=== PATIENT | female | born 1990 | race Caucasian/White ===

== ENCOUNTER 2023-09-09 15:30 | Inpatient (IN) | payer BC, OTHER ==
[2023-09-09] MEDS ORDERED: Lorazepam 2 MG/ML VIAL ONE ×3 (15:48→20:22)
[2023-09-09 16:41] LABS: #Basophils Less than 0.03 10x3/uL (0.0-0.2); #Eosinphils Less than 0.03 10x3/uL (0.0-0.7); %Basophils 0.1 % (0.0-1.0); %Lymphocytes 4.4 % (21.0-51.0); %Monocytes 2.8 % (0.0-10.0); %Neutrophils 91.8 % (42.0-75.0); Hematocrit 36.9 % (36.0-47.0); Hemoglobin 12.3 g/dL (12.0-16.0); Mean Corpuscular HGB CONC 33.3 g/dL (32.0-36.0); Mean Corpuscular Hemoglobin 30.6 pg (27.0-31.0); Mean Corpuscular Volume 91.8 fL (78.0-98.0); Platelet Count 187 10x3/uL (130-400); RBC Distribution Width 12.2 % (11.5-14.5); Red Blood Cell (RBC) Count 4.02 mill/uL (4.20-5.40)
[2023-09-09 16:52] LABS: Pregnancy Test - Urine (BHCG) POSITIVE (Negative); Pregu Control Background? CLEAR/WHITE (CLR/WHITE); Pregu Control Bar Appear? YES (CONTROL BAR)
[2023-09-09 16:53] LABS: Specific Gravity 1.018 (1.002-1.036)
[2023-09-09 16:55] LABS: Bilirubin Negative (Negative); Blood, Urine Negative (Negative); CAUTI Indications for Culture Alt mental st,lethar; Clarity Clear (Clear); Glucose, Urine (Dipstick) 500 mg/dL (Negative); Ketone, Urine Greater than 150 mg/dL (Negative); Leukocyte Negative Leu/uL (Negative); Mucous/LPF Rare LPF (<2+); Nitrite Negative (Negative); Protein, Urine (Dipstick) 20 mg/dL (Neg-Trace); RBC/HPF 0-3 HPF (0-3); Specific Gravity, Urine 1.018 (1.002-1.036); Urobilinogen Normal mg/dL (Less than 2); WBC/HPF 0-3 HPF (0-3)
[2023-09-09 16:57] LABS: Amphetamine Not Detected (NotDetected); Bacteria/HPF 1+ HPF (None Seen); Barbiturates Screen Not Detected (NotDetected); Benzodiazepine Screen Not Detected (NotDetected); Cocaine Metabolite Screen Not Detected (NotDetected); Methadone Not Detected (NotDetected); Methamphetamine Not Detected (NotDetected); Opiate Screen Not Detected (NotDetected); Oxycodone Screen Not Detected (NotDetected); Phencyclidine (PCP) Not Detected (NotDetected); THC/Cannabinoid Screen Not Detected (NotDetected); Tricyclic Screen Detected (NotDetected)
[2023-09-09 16:59] LABS: Urine Culture Reflex No No
[2023-09-09 17:00] LABS: Acetaminophen Less than 10 mcg/mL (10.0-30.0); Alcohol Less than 10.0 mg/dL (Less than 10); Salicylate Less than 8.0 mg/dL (15.0-30.0)
[2023-09-09 17:01] LABS: ALT (SGPT) 10 U/L (8-55); AST (SGOT) 12 U/L (5-34); Albumin 3.6 g/dL (3.5-5.0); Alkaline Phosphatase 44 U/L (40-110); Anion Gap 15 mmol/L (10-20); BUN (Urea Nitrogen) 7 mg/dL (7.0-18.7); Bilirubin, Total 0.7 mg/dL (0.2-1.2); CK (CPK) 46 U/L (29-168); Calc. Creatinine Clearance 0 mL/min (70-130); Calcium 8.2 mg/dL (7.8-10.44); Carbon Dioxide 15 mmol/L (22-29); Chloride 106 mmol/L (98-107); Estimated GFR 113; Globulin 2.7 g/dL (2.4-3.5); Glucose 179 mg/dL (70-105); Potassium 3.1 mmol/L (3.5-5.1); Protein, Total 6.3 g/dL (6.0-8.3); Sodium 133 mmol/L (136-145)
[2023-09-09] MEDS ORDERED: Ondansetron PF 4 MG/2 ML Vial ONE (17:25)
[2023-09-09] MEDS ORDERED: Magnesium 2 GM/50 ML BAG (IN WATER) ONE (19:54)
[2023-09-09 20:02] LABS: Magnesium 1.6 mg/dL (1.6-2.6)
[2023-09-09] MEDS ORDERED: NS 0.9% w/ 20 MEQ KCL 1,000 ML ONE (21:02)
[2023-09-09] MEDS ORDERED: Ziprasidone 20 MG VIAL ONE (22:55)
[2023-09-09] MEDS ORDERED: Sterile Water 10 ML ONE (22:56)
[2023-09-09 23:51] LABS: ALT (SGPT) 10 U/L (8-55); AST (SGOT) 16 U/L (5-34); Albumin 3.6 g/dL (3.5-5.0); Alkaline Phosphatase 42 U/L (40-110); Anion Gap 10 mmol/L (10-20); BUN (Urea Nitrogen) 5 mg/dL (7.0-18.7); Bilirubin, Total 0.6 mg/dL (0.2-1.2); Calc. Creatinine Clearance 0 mL/min (70-130); Calcium 7.6 mg/dL (7.8-10.44); Carbon Dioxide 17 mmol/L (22-29); Chloride 108 mmol/L (98-107); Estimated GFR 120; Globulin 2.6 g/dL (2.4-3.5); Glucose 125 mg/dL (70-105); Potassium 3.5 mmol/L (3.5-5.1); Protein, Total 6.2 g/dL (6.0-8.3); Sodium 131 mmol/L (136-145)
[2023-09-10] MEDS ORDERED: Acetaminophen 325 MG TAB PO PRN (01:17)
[2023-09-10] MEDS ORDERED: Ondansetron PF 4 MG/2 ML Vial IVP PRN (01:17)
[2023-09-10] MEDS ORDERED: Ondansetron ODT 4 MG TAB PO PRN (01:17)
[2023-09-10 02:36] VITALS: BMI 23.4
[2023-09-10] MEDS: Dextrose 5%-Lactated Ringers 1,000 ML IV SCH (03:01)
[2023-09-10 05:58] LABS: #Basophils Less than 0.03 10x3/uL (0.0-0.2); #Eosinphils Less than 0.03 10x3/uL (0.0-0.7); %Basophils 0.2 % (0.0-1.0); %Eosinophils 0.1 % (0.0-10.0); %Monocytes 5.1 % (0.0-10.0); Hematocrit 35.2 % (36.0-47.0); Hemoglobin 11.7 g/dL (12.0-16.0); Mean Corpuscular HGB CONC 33.2 g/dL (32.0-36.0); Mean Corpuscular Hemoglobin 29.8 pg (27.0-31.0); Mean Corpuscular Volume 89.8 fL (78.0-98.0); Mean Platelet Volume 11.5 fL (7.4-10.4); Platelet Count 185 10x3/uL (130-400); RBC Distribution Width 12.4 % (11.5-14.5); Red Blood Cell (RBC) Count 3.92 mill/uL (4.20-5.40)
[2023-09-10 06:52] LABS: Anion Gap 9 mmol/L (10-20); BUN (Urea Nitrogen) 4 mg/dL (7.0-18.7); Calc. Creatinine Clearance 119 mL/min (70-130); Calcium 8.3 mg/dL (7.8-10.44); Carbon Dioxide 19 mmol/L (22-29); Chloride 106 mmol/L (98-107); Estimated GFR 118; Glucose 132 mg/dL (70-105); Potassium 3.4 mmol/L (3.5-5.1); Sodium 131 mmol/L (136-145)
[2023-09-10] MEDS: Famotidine 20 MG TAB PO SCH (07:50)
[2023-09-10] MEDS: Famotidine/PF 20 mg/2ml Vial SLOW IVP SCH (09:00)
[2023-09-10] MEDS: Potassium Chloride 20 MEQ in Premix 1 BAG IVPB SCH (15:26)
[2023-09-10] MEDS: Lorazepam 2 MG/ML VIAL IM SCH ×2 (15:26→23:30)
[2023-09-10] MEDS: Lorazepam 2 MG/ML VIAL ONE (15:26)
[2023-09-10] MEDS: Magnesium Sulfate In Water 4 GM in Premix 1 BAG IVPB SCH (15:26)
[2023-09-10] MEDS: Dexmedetomidine In 0.9 % NaCl 100 ML IV SCH (19:18)
[2023-09-10] MEDS: Lactated Ringer's 1,000 ML IV SCH ×2 (21:45→22:37)
[2023-09-10 22:13] LABS: ALT (SGPT) 15 U/L (8-55); AST (SGOT) 31 U/L (5-34); Albumin 2.9 g/dL (3.5-5.0); Alkaline Phosphatase 37 U/L (40-110); Anion Gap 11 mmol/L (10-20); BUN (Urea Nitrogen) 5 mg/dL (7.0-18.7); Bilirubin, Total 0.5 mg/dL (0.2-1.2); Calc. Creatinine Clearance 105 mL/min (70-130); Calcium 7.8 mg/dL (7.8-10.44); Carbon Dioxide 17 mmol/L (22-29); Chloride 108 mmol/L (98-107); Estimated GFR 104; Globulin 2.2 g/dL (2.4-3.5); Glucose 269 mg/dL (70-105); Potassium 4.6 mmol/L (3.5-5.1); Protein, Total 5.1 g/dL (6.0-8.3); Sodium 131 mmol/L (136-145)
[2023-09-11] MEDS: Lorazepam 2 MG/ML VIAL ONE ×3 (00:07→12:59)
[2023-09-11] MEDS: Glycopyrrolate 0.2 MG/ML 5 ML SYRINGE SLOW IVP SCH (06:13)
[2023-09-11] MEDS ORDERED: Lorazepam 2 MG/ML VIAL SLOW IVP SCH (08:00)
[2023-09-11] MEDS: Lorazepam 2 MG/ML VIAL IM SCH (08:23)
[2023-09-11] MEDS: Lorazepam 2 MG/ML VIAL SLOW IVP PRN (09:37)
[2023-09-11] MEDS: Sodium Bicarb 50 MEQ/50 ML Abboject 8.4% SYRINGE ONE (09:39)
[2023-09-11] MEDS: fentaNYL 50 mcg/mL 1 mL Vial SLOW IVP SCH (09:59)
[2023-09-11] MEDS: Etomidate 40 MG (20 mL) VIAL IVP SCH (10:00)
[2023-09-11] MEDS: PROPOFOL 200 MG/20 ML VIAL IV SCH (10:03)
[2023-09-11] MEDS: Propofol 1,000 MG/100 ML VIAL IV PRN (10:03)
[2023-09-11] MEDS: Sodium Bicarbonate 75 MEQ in Sodium Chloride 0.45% 1,000 ML IV SCH (10:15)
[2023-09-11] MEDS ORDERED: Ventilator Sedation Protocol 1 EACH FS SCH (10:30)
[2023-09-11] MEDS ORDERED: Fentanyl BOLUS 250 ML IVPB PRN (10:45)
[2023-09-11] MEDS ORDERED: Propofol BOLUS 1,000 MG/100 ML VIAL IV PRN (10:45)
[2023-09-11] MEDS ORDERED: Morphine 2 MG/ML VIAL SLOW IVP PRN (10:45)
[2023-09-11] MEDS ORDERED: DISCONTINUE PREVIOUS NARCOTIC PAIN MEDICATIONS AND BENZODIAZEPINES FS SCH (10:45)
[2023-09-11 12:47] LABS: Actual Bicarbonate (HCO3v) 18.3 mEq/L (22-28); Base Excess -5.2 mEq/L (-2.0 to +3.0); Calcium, Ionized (venous) 1.13 mmol/L (1.16-1.32); Chloride (VBG) 108 mmol/L (98-106); Hematocrit-VBG 36 % (36.0-47.0); Hemoglobin (Hb) 12.3 g/dL (11.7-15.5); Potassium (VBG) 3.87 mmol/L (3.70-5.30); Sodium 140 mmol/L (133-146)
[2023-09-11] MEDS: Magnesium 2 GM/50 ML(in water) 2 GM in Premix 1 BAG IVPB SCH ×2 (12:51→12:58)
[2023-09-11] MEDS: cefTRIAXone\\ROCEPHIN 2 GM in Sodium Chloride 0.9% 100 ML IVPB SCH ×2 (12:52→13:04)
[2023-09-11] MEDS: fentaNYL 50 mcg/mL 1 mL Vial ONE (12:59)
[2023-09-11] MEDS: Propofol 1,000 MG/100 ML VIAL IV ONE (12:59)
[2023-09-11] MEDS: Fentanyl CADD 100 ML IV SCH (13:16)
[2023-09-11 13:59] LABS: #Basophils Less than 0.03 10x3/uL (0.0-0.2); %Basophils 0.2 % (0.0-1.0); %Eosinophils 0.9 % (0.0-10.0); %Lymphocytes 17.3 % (21.0-51.0); %Monocytes 11.2 % (0.0-10.0); %Neutrophils 69.9 % (42.0-75.0); Hematocrit 34.3 % (36.0-47.0); Hemoglobin 11.2 g/dL (12.0-16.0); Mean Corpuscular HGB CONC 32.7 g/dL (32.0-36.0); Mean Platelet Volume 12.4 fL (7.4-10.4); Platelet Count 121 10x3/uL (130-400); RBC Distribution Width 13.1 % (11.5-14.5); Red Blood Cell (RBC) Count 3.61 mill/uL (4.20-5.40)
[2023-09-11 14:13] LABS: Lactic Acid 2.3 mmol/L (0.5-2.2)
[2023-09-11 14:16] LABS: ALT (SGPT) 23 U/L (8-55); AST (SGOT) 50 U/L (5-34); Alkaline Phosphatase 39 U/L (40-110); Anion Gap 11 mmol/L (10-20); BUN (Urea Nitrogen) 5 mg/dL (7.0-18.7); Bilirubin, Total 0.8 mg/dL (0.2-1.2); Calc. Creatinine Clearance 115 mL/min (70-130); Calcium 8.3 mg/dL (7.8-10.44); Carbon Dioxide 18 mmol/L (22-29); Chloride 113 mmol/L (98-107); Estimated GFR 115; Globulin 2.4 g/dL (2.4-3.5); Glucose 94 mg/dL (70-105); Potassium 3.8 mmol/L (3.5-5.1); Protein, Total 5.4 g/dL (6.0-8.3); Sodium 138 mmol/L (136-145)
[2023-09-11] MEDS: Famotidine 20 MG TAB PER TUBE SCH (21:33)
[2023-09-11 22:23] LABS: Magnesium 2.4 mg/dL (1.6-2.6)
[2023-09-11] MEDS: Potassium Chloride 20 MEQ in Premix 1 BAG IVPB SCH (23:22)
[2023-09-12 03:46] LABS: Actual Bicarbonate (HCO3v) 23.6 mEq/L (22-28); Base Excess 0.7 mEq/L (-2.0 to +3.0); Calcium, Ionized (venous) 1.08 mmol/L (1.16-1.32); Chloride (VBG) 105 mmol/L (98-106); Hematocrit-VBG 33 % (36.0-47.0); Hemoglobin (Hb) 11.1 g/dL (11.7-15.5); Potassium (VBG) 3.68 mmol/L (3.70-5.30); Sodium 136 mmol/L (133-146); pH (venous) 7.487 (7.32-7.43)
[2023-09-12 04:01] LABS: #Basophils Less than 0.03 10x3/uL (0.0-0.2); %Basophils 0.1 % (0.0-1.0); %Eosinophils 1.6 % (0.0-10.0); %Lymphocytes 19.3 % (21.0-51.0); %Monocytes 6.3 % (0.0-10.0); %Neutrophils 72.5 % (42.0-75.0); Hematocrit 29.1 % (36.0-47.0); Mean Corpuscular HGB CONC 34.4 g/dL (32.0-36.0); Mean Corpuscular Hemoglobin 30.5 pg (27.0-31.0); Mean Corpuscular Volume 88.7 fL (78.0-98.0); Mean Platelet Volume 12.3 fL (7.4-10.4); Platelet Count 153 10x3/uL (130-400); RBC Distribution Width 13.1 % (11.5-14.5); Red Blood Cell (RBC) Count 3.28 mill/uL (4.20-5.40)
[2023-09-12 04:56] LABS: Phosphorus 1.8 mg/dL (2.3-4.7)
[2023-09-12 04:59] LABS: ALT (SGPT) 20 U/L (8-55); AST (SGOT) 34 U/L (5-34); Albumin 2.7 g/dL (3.5-5.0); Alkaline Phosphatase 41 U/L (40-110); Anion Gap 13 mmol/L (10-20); BUN (Urea Nitrogen) 5 mg/dL (7.0-18.7); Bilirubin, Total 0.4 mg/dL (0.2-1.2); Calc. Creatinine Clearance 123 mL/min (70-130); Calcium 7.9 mg/dL (7.8-10.44); Carbon Dioxide 21 mmol/L (22-29); Chloride 106 mmol/L (98-107); Estimated GFR 119; Globulin 2.3 g/dL (2.4-3.5); Glucose 71 mg/dL (70-105); Potassium 3.6 mmol/L (3.5-5.1); Sodium 136 mmol/L (136-145)
[2023-09-12] MEDS: Famotidine 20 MG TAB PER TUBE SCH (08:30)
[2023-09-12] MEDS ORDERED: Electrolyte Replacement Protocol FS PRN (08:45)
[2023-09-12] MEDS: Magnesium 2 GM/50 ML(in water) 2 GM in Premix 1 BAG IVPB SCH (08:55)
[2023-09-12] MEDS: Potassium Phosphate 15 MMOL in Sodium Chloride 0.9% 100 ML IVPB SCH (09:11)
[2023-09-12] MEDS: Potassium Bicarbonate/Cit Ac 20 MEQ TAB PER TUBE SCH (14:02)
[2023-09-12 15:12] LABS: Actual Bicarbonate (HCO3v) 21.3 mEq/L (22-28); Calcium, Ionized (venous) 1.07 mmol/L (1.16-1.32); Chloride (VBG) 101 mmol/L (98-106); Hematocrit-VBG 36 % (36.0-47.0); Hemoglobin (Hb) 12.1 g/dL (11.7-15.5); Potassium (VBG) 3.87 mmol/L (3.70-5.30); Sodium 133 mmol/L (133-146); pH (venous) 7.494 (7.32-7.43)
[2023-09-12] MEDS: Potassium Bicarbonate/Cit Ac 20 MEQ TAB PO SCH (19:07)
[2023-09-13 03:35] LABS: #Basophils 0.03 10x3/uL (0.0-0.2); %Basophils 0.4 % (0.0-1.0); %Lymphocytes 14.4 % (21.0-51.0); %Monocytes 5.1 % (0.0-10.0); %Neutrophils 77.9 % (42.0-75.0); Hematocrit 31.6 % (36.0-47.0); Hemoglobin 10.6 g/dL (12.0-16.0); Mean Corpuscular HGB CONC 33.5 g/dL (32.0-36.0); Mean Corpuscular Hemoglobin 30.8 pg (27.0-31.0); Mean Corpuscular Volume 91.9 fL (78.0-98.0); Mean Platelet Volume 11.8 fL (7.4-10.4); Platelet Count 155 10x3/uL (130-400); Red Blood Cell (RBC) Count 3.44 mill/uL (4.20-5.40)
[2023-09-13 03:38] LABS: Actual Bicarbonate (HCO3v) 24.6 mEq/L (22-28); Hematocrit-VBG 34 % (36.0-47.0); Hemoglobin (Hb) 11.4 g/dL (11.7-15.5); pH (venous) 7.405 (7.32-7.43)
[2023-09-13 03:39] LABS: Calcium, Ionized (venous) 1.14 mmol/L (1.16-1.32); Chloride (VBG) 101 mmol/L (98-106); Sodium 134 mmol/L (133-146)
[2023-09-13 04:07] LABS: ALT (SGPT) 25 U/L (8-55); AST (SGOT) 48 U/L (5-34); Albumin 2.6 g/dL (3.5-5.0); Alkaline Phosphatase 51 U/L (40-110); Anion Gap 12 mmol/L (10-20); BUN (Urea Nitrogen) 4 mg/dL (7.0-18.7); Bilirubin, Total 0.5 mg/dL (0.2-1.2); Calc. Creatinine Clearance 122 mL/min (70-130); Calcium 8.5 mg/dL (7.8-10.44); Carbon Dioxide 21 mmol/L (22-29); Chloride 107 mmol/L (98-107); Estimated GFR 117; Globulin 2.9 g/dL (2.4-3.5); Glucose 75 mg/dL (70-105); Potassium 4.2 mmol/L (3.5-5.1); Protein, Total 5.5 g/dL (6.0-8.3); Sodium 136 mmol/L (136-145)
[2023-09-13 04:09] LABS: Phosphorus 3.6 mg/dL (2.3-4.7)
[2023-09-13] MEDS: Magnesium 2 GM/50 ML(in water) 2 GM in Premix 1 BAG IVPB SCH (08:47)
[2023-09-13] MEDS: Haloperidol Lactate 5 MG/ML VIAL SLOW IVP SCH (09:55)
[2023-09-13] MEDS: Haloperidol Lactate 5 MG/ML VIAL ONE (10:17)
[2023-09-13] MEDS: Enoxaparin 40 MG (0.4 mL) SYRINGE SC SCH (13:13)
[2023-09-13] MEDS: Lorazepam 2 MG/ML VIAL SLOW IVP SCH (18:34)
[2023-09-14] MEDS: cefTRIAXone\\ROCEPHIN 2 GM in Sodium Chloride 0.9% 100 ML IVPB SCH (00:44)
[2023-09-14] MEDS: cefTRIAXone (ROCEPHIN) 2 GM VIAL ONE (00:44)
[2023-09-14] MEDS: Sodium Chloride 0.9% 100 ML ONE (00:57)
[2023-09-14] MEDS: Dexmedetomidine In 0.9 % NaCl 100 ML IV SCH (06:46)
[2023-09-14] MEDS: Enoxaparin 40 MG (0.4 mL) SYRINGE SC SCH (09:49)
[2023-09-14 11:15] LABS: Actual Bicarbonate (HCO3v) 22.3 mEq/L (22-28); Base Excess -2.8 mEq/L (-2.0 to +3.0); Calcium, Ionized (venous) 1.14 mmol/L (1.16-1.32); Chloride (VBG) 99 mmol/L (98-106); Hematocrit-VBG 40 % (36.0-47.0); Hemoglobin (Hb) 13.6 g/dL (11.7-15.5); Potassium (VBG) 4.32 mmol/L (3.70-5.30); Sodium 135 mmol/L (133-146); pH (venous) 7.364 (7.32-7.43)
[2023-09-14 11:34] LABS: #Basophils Less than 0.03 10x3/uL (0.0-0.2); %Basophils 0.1 % (0.0-1.0); %Eosinophils 3.3 % (0.0-10.0); %Lymphocytes 16.3 % (21.0-51.0); %Neutrophils 72.8 % (42.0-75.0); Hematocrit 38.2 % (36.0-47.0); Hemoglobin 12.7 g/dL (12.0-16.0); Mean Corpuscular HGB CONC 33.2 g/dL (32.0-36.0); Mean Corpuscular Hemoglobin 30.5 pg (27.0-31.0); Mean Corpuscular Volume 91.6 fL (78.0-98.0); Mean Platelet Volume 11.4 fL (7.4-10.4); Platelet Count 234 10x3/uL (130-400); RBC Distribution Width 12.6 % (11.5-14.5); Red Blood Cell (RBC) Count 4.17 mill/uL (4.20-5.40)
[2023-09-14] MEDS: Lorazepam 2 MG/ML VIAL SLOW IVP SCH (12:01)
[2023-09-14 12:03] LABS: ALT (SGPT) 29 U/L (8-55); AST (SGOT) 52 U/L (5-34); Albumin 2.8 g/dL (3.5-5.0); Alkaline Phosphatase 88 U/L (40-110); Anion Gap 13 mmol/L (10-20); BUN (Urea Nitrogen) Less than 4 mg/dL (7.0-18.7); Bilirubin, Total 0.5 mg/dL (0.2-1.2); Calc. Creatinine Clearance 114 mL/min (70-130); Calcium 9.3 mg/dL (7.8-10.44); Carbon Dioxide 23 mmol/L (22-29); Chloride 103 mmol/L (98-107); Estimated GFR 113; Globulin 3.8 g/dL (2.4-3.5); Glucose 64 mg/dL (70-105); Potassium 4.3 mmol/L (3.5-5.1); Protein, Total 6.6 g/dL (6.0-8.3); Sodium 135 mmol/L (136-145)
[2023-09-14] MEDS: Etomidate 40 MG (20 mL) VIAL IVP SCH (12:30)
[2023-09-14] MEDS: SUCCINYLCHOLINE/SOD CL,ISO/PF 200 MG/10 ML SYRINGE FS PRN (12:35)
[2023-09-14] MEDS: busPIRone HCl 10 MG TAB PER TUBE SCH ×2 (13:40→21:11)
[2023-09-14] MEDS: buPROPion 75 MG TAB PER TUBE SCH ×2 (13:40→21:16)
[2023-09-14] MEDS: Lactated Ringer's 1,000 ML IV SCH (17:00)
[2023-09-14] MEDS: QUEtiapine 25 MG TAB PER TUBE SCH (21:11)
[2023-09-15 08:52] LABS: #Basophils Less than 0.03 10x3/uL (0.0-0.2); %Basophils 0.1 % (0.0-1.0); %Lymphocytes 15.7 % (21.0-51.0); %Monocytes 13.1 % (0.0-10.0); %Neutrophils 67.6 % (42.0-75.0); Hematocrit 34.2 % (36.0-47.0); Mean Corpuscular HGB CONC 32.2 g/dL (32.0-36.0); Mean Corpuscular Hemoglobin 30.2 pg (27.0-31.0); Mean Platelet Volume 11.3 fL (7.4-10.4); Platelet Count 205 10x3/uL (130-400); RBC Distribution Width 12.6 % (11.5-14.5); Red Blood Cell (RBC) Count 3.64 mill/uL (4.20-5.40)
[2023-09-15 09:15] LABS: ALT (SGPT) 26 U/L (8-55); AST (SGOT) 40 U/L (5-34); Albumin 2.3 g/dL (3.5-5.0); Alkaline Phosphatase 70 U/L (40-110); Anion Gap 14 mmol/L (10-20); BUN (Urea Nitrogen) Less than 4 mg/dL (7.0-18.7); Calc. Creatinine Clearance 112 mL/min (70-130); Calcium 8.9 mg/dL (7.8-10.44); Carbon Dioxide 18 mmol/L (22-29); Chloride 107 mmol/L (98-107); Estimated GFR 111; Globulin 3.5 g/dL (2.4-3.5); Glucose 55 mg/dL (70-105); Protein, Total 5.8 g/dL (6.0-8.3); Sodium 135 mmol/L (136-145)
[2023-09-15 13:06] LABS: Actual Bicarbonate (HCO3v) 15.5 mEq/L (22-28); Base Excess -10.5 mEq/L (-2.0 to +3.0); Calcium, Ionized (venous) 1.19 mmol/L (1.16-1.32); Chloride (VBG) 103 mmol/L (98-106); Hematocrit-VBG 35 % (36.0-47.0); Hemoglobin (Hb) 11.9 g/dL (11.7-15.5); Potassium (VBG) 4.22 mmol/L (3.70-5.30); Sodium 136 mmol/L (133-146); pH (venous) 7.263 (7.32-7.43)
[2023-09-16 04:04] LABS: #Basophils Less than 0.03 10x3/uL (0.0-0.2); %Basophils 0.2 % (0.0-1.0); %Eosinophils 2.9 % (0.0-10.0); %Lymphocytes 6.1 % (21.0-51.0); %Neutrophils 82.2 % (42.0-75.0); Hematocrit 33.8 % (36.0-47.0); Hemoglobin 10.9 g/dL (12.0-16.0); Mean Corpuscular HGB CONC 32.2 g/dL (32.0-36.0); Mean Corpuscular Hemoglobin 29.9 pg (27.0-31.0); Mean Corpuscular Volume 92.9 fL (78.0-98.0); Mean Platelet Volume 10.8 fL (7.4-10.4); Platelet Count 229 10x3/uL (130-400); RBC Distribution Width 12.4 % (11.5-14.5); Red Blood Cell (RBC) Count 3.64 mill/uL (4.20-5.40)
[2023-09-16 04:23] LABS: Actual Bicarbonate (HCO3v) 17.6 mEq/L (22-28); Base Excess -9.4 mEq/L (-2.0 to +3.0); Calcium, Ionized (venous) 1.23 mmol/L (1.16-1.32); Chloride (VBG) 102 mmol/L (98-106); Hematocrit-VBG 36 % (36.0-47.0); Hemoglobin (Hb) 12.1 g/dL (11.7-15.5); Potassium (VBG) 4.39 mmol/L (3.70-5.30); Sodium 134 mmol/L (133-146); pH (venous) 7.233 (7.32-7.43)
[2023-09-16 04:26] LABS: ALT (SGPT) 28 U/L (8-55); AST (SGOT) 35 U/L (5-34); Albumin 2.3 g/dL (3.5-5.0); Alkaline Phosphatase 77 U/L (40-110); Anion Gap 14 mmol/L (10-20); BUN (Urea Nitrogen) Less than 4 mg/dL (7.0-18.7); Bilirubin, Total 1.4 mg/dL (0.2-1.2); Calc. Creatinine Clearance 119 mL/min (70-130); Calcium 9.4 mg/dL (7.8-10.44); Carbon Dioxide 16 mmol/L (22-29); Chloride 107 mmol/L (98-107); Estimated GFR 117; Globulin 3.9 g/dL (2.4-3.5); Glucose 83 mg/dL (70-105); Potassium 4.4 mmol/L (3.5-5.1); Protein, Total 6.2 g/dL (6.0-8.3); Sodium 133 mmol/L (136-145)
[2023-09-16] MEDS: Sodium Bicarb 50 mEq/50 ML VIAL ONE (10:20)
[2023-09-16] MEDS: Sodium Bicarb 50 MEQ/50 ML Abboject 8.4% SYRINGE IVP SCH (11:27)
[2023-09-16] MEDS: Senokot S 8.6-50 MG TAB PO SCH (21:21)
[2023-09-17 04:26] LABS: BHCG - Serum POSITIVE (NEGATIVE); Pregs Control Background? CLEAR/WHITE (CLR/WHITE); Pregs Control Bar Appear? YES (CONTROL BAR)
[2023-09-17 13:41] LABS: Actual Bicarbonate (HCO3v) 20.5 mEq/L (22-28); Base Excess -3.5 mEq/L (-2.0 to +3.0); Chloride (VBG) 104 mmol/L (98-106); Hematocrit-VBG 34 % (36.0-47.0); Hemoglobin (Hb) 11.5 g/dL (11.7-15.5); Potassium (VBG) 2.92 mmol/L (3.70-5.30); Sodium 137 mmol/L (133-146); pH (venous) 7.404 (7.32-7.43)
[2023-09-18] MEDS: cloNIDine 0.1 MG TAB PO SCH ×2 (09:49→10:04)
[2023-09-18] MEDS: Metoclopramide HCl 10 MG (2 mL) VIAL IVP PRN (09:54)
[2023-09-18] MEDS: QUEtiapine 25 MG TAB PER TUBE SCH ×2 (10:04→21:54)
[2023-09-18] MEDS: QUEtiapine 25 MG TAB PO SCH (10:23)
[2023-09-18 11:04] LABS: #Basophils Less than 0.03 10x3/uL (0.0-0.2); %Basophils 0.1 % (0.0-1.0); %Eosinophils 2.7 % (0.0-10.0); %Monocytes 6.6 % (0.0-10.0); %Neutrophils 72.7 % (42.0-75.0); Hematocrit 31.1 % (36.0-47.0); Hemoglobin 10.3 g/dL (12.0-16.0); Mean Corpuscular HGB CONC 33.1 g/dL (32.0-36.0); Mean Corpuscular Hemoglobin 30.4 pg (27.0-31.0); Mean Corpuscular Volume 91.7 fL (78.0-98.0); Mean Platelet Volume 10.3 fL (7.4-10.4); Platelet Count 240 10x3/uL (130-400); RBC Distribution Width 12.7 % (11.5-14.5); Red Blood Cell (RBC) Count 3.39 mill/uL (4.20-5.40)
[2023-09-18 11:09] LABS: Actual Bicarbonate (HCO3v) 18.7 mEq/L (22-28); Base Excess -3.6 mEq/L (-2.0 to +3.0); Calcium, Ionized (venous) 1.09 mmol/L (1.16-1.32); Chloride (VBG) 103 mmol/L (98-106); Hematocrit-VBG 35 % (36.0-47.0); Hemoglobin (Hb) 11.9 g/dL (11.7-15.5); Potassium (VBG) 3.45 mmol/L (3.70-5.30); Sodium 135 mmol/L (133-146); pH (venous) 7.471 (7.32-7.43)
[2023-09-18 11:20] LABS: ALT (SGPT) 32 U/L (8-55); AST (SGOT) 39 U/L (5-34); Alkaline Phosphatase 82 U/L (40-110); Anion Gap 16 mmol/L (10-20); BUN (Urea Nitrogen) Less than 4 mg/dL (7.0-18.7); Bilirubin, Total 0.5 mg/dL (0.2-1.2); Calc. Creatinine Clearance 145 mL/min (70-130); Calcium 9.1 mg/dL (7.8-10.44); Carbon Dioxide 17 mmol/L (22-29); Chloride 108 mmol/L (98-107); Estimated GFR 124; Globulin 3.9 g/dL (2.4-3.5); Glucose 81 mg/dL (70-105); Potassium 3.3 mmol/L (3.5-5.1); Protein, Total 5.9 g/dL (6.0-8.3); Sodium 138 mmol/L (136-145)
[2023-09-18] MEDS ORDERED: Potassium Bicarbonate/Cit Ac 20 MEQ TAB PER TUBE SCH (12:45)
[2023-09-18] MEDS: Racepinephrine 2.25% 0.5 ML NEB ONE ×2 (14:23→22:48)
[2023-09-18] MEDS: Acetaminophen 650 MG Suppository PR PRN (14:30)
[2023-09-18] MEDS: Dexamethasone 4 mg/ml Vial SLOW IVP SCH (14:34)
[2023-09-18] MEDS: Lactated Ringer's 500 ML IV SCH (14:40)
[2023-09-18] MEDS: DC Sedation Protocol FS ONE (14:40)
[2023-09-18] MEDS ORDERED: Potassium Chloride 40 MEQ in Premix 1 BAG IVPB SCH (14:45)
[2023-09-18] MEDS: Potassium Chloride 20 MEQ in Premix 1 BAG IVPB SCH (16:20)
[2023-09-18] MEDS: Phenol 177 ML BOT PO PRN (16:21)
[2023-09-18] MEDS: Metoprolol Tartrate 5 MG (5 mL) VIAL IVP SCH (16:21)
[2023-09-18] MEDS: Piperacillin/Tazobactam 3.375 GM in Sodium Chloride 0.9% 100 ML IVPB SCH ×2 (16:40→21:59)
[2023-09-18] MEDS: Piperacillin/Tazobactam 4.5 GM in Sodium Chloride 0.9% 100 ML IVPB SCH (17:08)
[2023-09-18] MEDS: Racepinephrine 2.25% 0.5 ML NEB NEB SCH (18:24)
[2023-09-18] MEDS ORDERED: QUEtiapine 25 MG TAB PO SCH (21:00)
[2023-09-18] MEDS: Dexmedetomidine In 0.9 % NaCl 100 ML IVPB SCH (21:53)
[2023-09-18] MEDS: Melatonin 3 MG TAB PO SCH (21:56)
[2023-09-19] MEDS: Potassium Chloride 20 MEQ in Premix 1 BAG IVPB SCH (09:04)
[2023-09-19] MEDS: Dexamethasone 4 mg/ml Vial SLOW IVP SCH (09:04)
[2023-09-19 11:40] LABS: #Basophils Less than 0.03 10x3/uL (0.0-0.2); #Eosinphils Less than 0.03 10x3/uL (0.0-0.7); %Basophils 0.1 % (0.0-1.0); %Monocytes 2.3 % (0.0-10.0); %Neutrophils 87.6 % (42.0-75.0); Hematocrit 33.5 % (36.0-47.0); Hemoglobin 11.4 g/dL (12.0-16.0); Mean Corpuscular Hemoglobin 29.4 pg (27.0-31.0); Mean Corpuscular Volume 86.3 fL (78.0-98.0); Mean Platelet Volume 10.1 fL (7.4-10.4); Platelet Count 321 10x3/uL (130-400); RBC Distribution Width 12.1 % (11.5-14.5); Red Blood Cell (RBC) Count 3.88 mill/uL (4.20-5.40)
[2023-09-19] MEDS ORDERED: Racepinephrine 2.25% 0.5 ML NEB NEB PRN (13:05)
[2023-09-19 14:54] LABS: Potassium 4.3 mmol/L (3.5-5.1)
[2023-09-19 15:11] LABS: ALT (SGPT) 49 U/L (8-55); AST (SGOT) 54 U/L (5-34); Albumin 2.6 g/dL (3.5-5.0); Alkaline Phosphatase 102 U/L (40-110); Anion Gap 16 mmol/L (10-20); BUN (Urea Nitrogen) 6 mg/dL (7.0-18.7); Bilirubin, Total 0.7 mg/dL (0.2-1.2); Calc. Creatinine Clearance 121 mL/min (70-130); Calcium 10.2 mg/dL (7.8-10.44); Carbon Dioxide 19 mmol/L (22-29); Chloride 104 mmol/L (98-107); Estimated GFR 119; Globulin 4.6 g/dL (2.4-3.5); Glucose 129 mg/dL (70-105); Protein, Total 7.2 g/dL (6.0-8.3); Sodium 135 mmol/L (136-145)
[2023-09-20 07:04] LABS: ALT (SGPT) 56 U/L (8-55); AST (SGOT) 56 U/L (5-34); Albumin 2.7 g/dL (3.5-5.0); Alkaline Phosphatase 94 U/L (40-110); Anion Gap 14 mmol/L (10-20); BUN (Urea Nitrogen) 11 mg/dL (7.0-18.7); Bilirubin, Total 0.8 mg/dL (0.2-1.2); Calc. Creatinine Clearance 116 mL/min (70-130); Calcium 9.9 mg/dL (7.8-10.44); Carbon Dioxide 21 mmol/L (22-29); Chloride 103 mmol/L (98-107); Estimated GFR 118; Globulin 4.4 g/dL (2.4-3.5); Glucose 103 mg/dL (70-105); Protein, Total 7.1 g/dL (6.0-8.3); Sodium 134 mmol/L (136-145)
[2023-09-20] MEDS: Amoxicillin/Potassium Clav 875 MG TAB PO SCH (09:09)
[2023-09-20 09:38] LABS: #Basophils Less than 0.03 10x3/uL (0.0-0.2); %Basophils 0.2 % (0.0-1.0); %Eosinophils 0.5 % (0.0-10.0); %Lymphocytes 6.6 % (21.0-51.0); %Monocytes 5.3 % (0.0-10.0); %Neutrophils 87.1 % (42.0-75.0); Hematocrit 34.5 % (36.0-47.0); Hemoglobin 10.9 g/dL (12.0-16.0); Mean Corpuscular HGB CONC 31.6 g/dL (32.0-36.0); Mean Corpuscular Hemoglobin 26.8 pg (27.0-31.0); Mean Corpuscular Volume 84.8 fL (78.0-98.0); Mean Platelet Volume 10.1 fL (7.4-10.4); Platelet Count 204 10x3/uL (130-400); RBC Distribution Width 17.6 % (11.5-14.5); Red Blood Cell (RBC) Count 4.07 mill/uL (4.20-5.40)
[2023-09-20 12:39] VITALS: BMI 21.4
[2023-09-21 06:37] LABS: ALT (SGPT) 291 U/L (8-55); AST (SGOT) 347 U/L (5-34); Albumin 3.5 g/dL (3.5-5.0); Alkaline Phosphatase 117 U/L (40-110); Anion Gap 18 mmol/L (10-20); BUN (Urea Nitrogen) 15 mg/dL (7.0-18.7); Bilirubin, Total 1.6 mg/dL (0.2-1.2); Calc. Creatinine Clearance 103 mL/min (70-130); Calcium 10.6 mg/dL (7.8-10.44); Carbon Dioxide 21 mmol/L (22-29); Chloride 102 mmol/L (98-107); Estimated GFR 113; Globulin 5.1 g/dL (2.4-3.5); Glucose 96 mg/dL (70-105); Potassium 3.4 mmol/L (3.5-5.1); Protein, Total 8.6 g/dL (6.0-8.3); Sodium 138 mmol/L (136-145)
[2023-09-21] MEDS: Potassium Chloride 20 MEQ TAB PO SCH (09:20)
[2023-09-22 08:48] LABS: #Basophils 0.05 10x3/uL (0.0-0.2); %Basophils 0.5 % (0.0-1.0); %Eosinophils 0.3 % (0.0-10.0); %Lymphocytes 25.8 % (21.0-51.0); %Monocytes 7.9 % (0.0-10.0); %Neutrophils 64.1 % (42.0-75.0); Hematocrit 40.7 % (36.0-47.0); Hemoglobin 14.1 g/dL (12.0-16.0); Mean Corpuscular HGB CONC 34.6 g/dL (32.0-36.0); Mean Corpuscular Hemoglobin 30.1 pg (27.0-31.0); Mean Platelet Volume 9.7 fL (7.4-10.4); Platelet Count 396 10x3/uL (130-400); RBC Distribution Width 12.2 % (11.5-14.5); Red Blood Cell (RBC) Count 4.68 mill/uL (4.20-5.40)
[2023-09-22 09:11] LABS: ALT (SGPT) 441 U/L (8-55); AST (SGOT) 318 U/L (5-34); Albumin 3.3 g/dL (3.5-5.0); Alkaline Phosphatase 96 U/L (40-110); Anion Gap 15 mmol/L (10-20); BUN (Urea Nitrogen) 15 mg/dL (7.0-18.7); Bilirubin, Total 1.1 mg/dL (0.2-1.2); Calc. Creatinine Clearance 103 mL/min (70-130); Calcium 9.8 mg/dL (7.8-10.44); Carbon Dioxide 20 mmol/L (22-29); Chloride 104 mmol/L (98-107); Estimated GFR 113; Globulin 4.1 g/dL (2.4-3.5); Glucose 112 mg/dL (70-105); Potassium 2.9 mmol/L (3.5-5.1); Protein, Total 7.4 g/dL (6.0-8.3); Sodium 136 mmol/L (136-145)
[2023-09-22] MEDS ORDERED: Potassium Chloride 20 MEQ TAB PO SCH (09:15)
[2023-09-22] MEDS: Potassium Chloride 40 MEQ in Premix 1 BAG IVPB SCH (10:11)
[2023-09-22] MEDS: Potassium Chloride 20 MEQ in Premix 1 BAG IVPB SCH ×2 (10:21→21:40)
[2023-09-22] MEDS ORDERED: Aluminum & Magnesium Hydroxide 60 ML, Lidocaine 2% Viscous Solution 30 ML, diphenhydrAM... SSW SCH (11:30)
[2023-09-22 11:47] LABS: BHCG - Serum POSITIVE (NEGATIVE); Pregs Control Background? CLEAR/WHITE (CLR/WHITE); Pregs Control Bar Appear? YES (CONTROL BAR)
[2023-09-22] MEDS: MAGIC MOUTHWASH 10 ML UDCUP SSW SCH (12:58)
[2023-09-22 13:42] LABS: Potassium 3.8 mmol/L (3.5-5.1)
[2023-09-23 02:28] VITALS: BP 121/78; TEMP 97.8
== END 2023-09-23 08:50 | DRG 831 ==
LOC: ERS 15:30 → IMCU/EMU 23:08 → OBSVTOIN 09-10 01:17 → EEVIPCON 09-10 01:17 → CCU 09-11 09:27 → T4-B 09-20 21:18
PROVIDERS: ADMIT Student in an Organized Health Care Education/Training Program; ATTEND Family Medicine
PROC: 0BH17EZ Insertion of Endotracheal Airway into Trachea, Via Natural or Artificial Opening (ICD-10-PCS; principal; 2023-09-11)
PROC: 5A1955Z Respiratory Ventilation, Greater than 96 Consecutive Hours (ICD-10-PCS; 2023-09-11)
PROC: 4A00X4Z Measurement of Central Nervous Electrical Activity, External Approach (ICD-10-PCS; 2023-09-11)
DX: O9A.211 Injury, poisoning and certain other consequences of external causes complicating pregnancy, first trimester (principal); G93.41 Metabolic encephalopathy; J96.01 Acute respiratory failure with hypoxia; E87.1 Hypo-osmolality and hyponatremia; E87.20 Acidosis, unspecified; F05 Delirium due to known physiological condition; T42.6X2A Poisoning by other antiepileptic and sedative-hypnotic drugs, intentional self-harm, initial encounter; T43.592A Poisoning by other antipsychotics and neuroleptics, intentional self-harm, initial encounter; F41.9 Anxiety disorder, unspecified; F31.9 Bipolar disorder, unspecified; D72.829 Elevated white blood cell count, unspecified; I44.0 Atrioventricular block, first degree; R94.31 Abnormal electrocardiogram [ECG] [EKG]; Z91.51 Personal history of suicidal behavior; Z91.199 Patient's noncompliance with other medical treatment and regimen due to unspecified reason; Z3A.01 Less than 8 weeks gestation of pregnancy; F29 Unspecified psychosis not due to a substance or known physiological condition; E87.6 Hypokalemia
CPT/HCPCS: 36415; 36416; 51701; 71045; 74018; 76801; 80048; 80053; 80175; 80306; 80307; 81001; 81025; 82550; 82805; 83605; 83735; 84100; 84443; 84702; 84703; 85025; 87040; 93005; 93010; 94002; 94003; 94640; 95816; 95819; 96372; 96374; 96375; 96376; J0696; J1100; J1630; J1650; J2060; J2405; J2543; J2704; J2765; J3010; J3475; J3480; J3486; J3490; J7120; S0028